=== PATIENT | male | born 1960 | race African-American/Black ===

== ENCOUNTER 2019-02-03 03:29 | Emergency (ER) | payer MEDICAID ==
[~2019-02-03] VITALS: Ht 165.1 cm; Wt 85.0 kg
[2019-02-03 05:25] LABS: CHLORIDE 112 mEq/L (98-107)
[2019-02-03 05:26] LABS: BASOPHILS % 0.6 % (0.0-2.0); EOSINOPHILS % 1.8 % (0.0-5.0); HEMOGLOBIN. 13.9 g/dL (14.0-18.0); LYMPHOCYTES % 10.2 % (20.0-50.0); MEAN CORPUSCULAR HEMOGLOBIN 31.9 pg (28.0-32.0); MEAN CORPUSCULAR VOLUME 94.4 fL (80.0-94.0); MEAN PLATELET VOLUME 8.6 fl (7.4-10.4); MONOCYTES % 5.3 % (2.0-8.0); NEUTROPHILS % 82.1 % (40.0-76.0); PLATELET 388 x1000/uL (130-400); RED BLOOD CELL COUNT 4.34 mill/uL (4.7-6.1); RED CELL DISTRIBUTION WIDTH 15.6 % (11.6-14.6)
[2019-02-03] MEDS ORDERED: ONDANSETRON HCL 4MG/2ML INJ IV ONE (07:15)
[2019-02-03] MEDS ORDERED: MORPHINE SULFATE 4 MG/ML CPJ (NOT FOR IM USE) IV ONE ×3 (07:15→11:09)
[2019-02-03] MEDS ORDERED: ASPIRIN 325MG EC TABLET PO ONE (09:45)
[2019-02-03] MEDS ORDERED: MORPHINE SULFATE 10 MG/ML CPJ IV NR (11:15)
[2019-02-03 11:22] VITALS: BP 163/100
== END 2019-02-03 17:26 | disposition short-term general hospital (02) ==
LOC: ER 03:29
DX: R07.89 Other chest pain (principal); I10 Essential (primary) hypertension; I25.2 Old myocardial infarction; F41.9 Anxiety disorder, unspecified; Z88.2 Allergy status to sulfonamides; Z88.0 Allergy status to penicillin
CPT/HCPCS: 36415; 71045; 74176; 80053; 83880; 84484; 85025; 93005; 96374; 96375; 96376; 99285; J2270; J2405